=== PATIENT | male | born 1955 | race Two or more races ===

== ENCOUNTER 2018-07-29 08:21 | Day surgery (SDC) | payer BC ==
[2018-07-28 18:25] VITALS: BMI 31.3
[2018-07-29] MEDS ORDERED: CEFTRIAXONE 1 GM in DEXTROSE 5%-WATER - 50 ML IVPB ONE (10:45)
[2018-07-29] MEDS ORDERED: MIDAZOLAM HCL 2 MG/2 ML SINGLE DOSE VIAL ONE (11:04)
[2018-07-29] MEDS ORDERED: CEFTRIAXONE 1 GM/50 ML PREMIX IVPB ONE (11:40)
[2018-07-29] MEDS ORDERED: ONDANSETRON 4 MG/2 ML VIAL IVPUSH PRN (12:06)
[2018-07-29] MEDS ORDERED: oxyCODONE HCL 5 MG TABLET PO PRN ×3 (12:06→12:27)
[2018-07-29] MEDS ORDERED: LACTATED RINGERS SOLUTION 1,000 ML IV SCH (12:15)
[2018-07-29] MEDS ORDERED: ELECTROLYTE-148 SOLN 1,000 ML IV SCH (12:30)
--- NOTE | 2018-07-29 12:30 | OP ---
Operative Note - Note: Operative Date: 07/29/18 Pre-Operative Diagnosis: BPH,incompletye emptying Operation: TURP/TURVP Findings: BPH Post-Operative Diagnosis: Same as Pre-op Anesthesia: Spinal Specimens Removed: prostate chips Estimated Blood Loss (mls): 10 Drains & Tubes with Location: 24fr [address] [facility] Operative Report Dictated: Yes
--- NOTE | 2018-07-29 13:58 | OP ---
DATE OF OPERATION: 07/29/2018 PREOPERATIVE DIAGNOSIS: Benign prostatic hypertrophy with incomplete bladder emptying. POSTOPERATIVE DIAGNOSIS: Benign prostatic hypertrophy with incomplete bladder emptying. PROCEDURE: Cystoscopy, bipolar transurethral resection and vaporization of the prostate. SURGEON: Dharmesh Ramos MD INDICATIONS: Patient is a 62-year-old male with recurrent UTI from incomplete bladder emptying. After reviewing treatment options, patient elected to undergo bipolar TURP and TUVP. Risks, benefits, and alternatives were discussed including bleeding, infection, impotence, incontinence, stricture formation, and potential need for additional procedures. DESCRIPTION OF PROCEDURE: After informed consent was obtained, the patient was taken to the OR and placed supine on the OR table. With cardiac monitoring administered and spinal anesthetic then given, he was prepped and draped in dorsal lithotomy position. The meatus was dilated with meatal sounds to 26-Lao. The meatus was dilated because of mild meatal narrowing. At this point then, the 26-sheath resectoscope was inserted into the urethra without difficulty. Anterior urethra was normal. Prostatic urethra was 4 cm and visually occlusive with an enlarged median bar. No tumors or stones noted in the bladder. At this point, then, using the loop, the prostate tissue was resected at the median lobe and the lateral tissue circumferentially. All bleeding sites were then cauterized. Then, I switched over to a half-castillo electrode for vaporization and coagulation. There was no resection or vaporization within 1 cm of the verumontanum to minimize the chance of incontinence. All prostate chips were removed with the Ellik evacuator. With the resectoscope situated just past the verumontanum, looking into the bladder, a wide open channel was noted. There was no injury to the bladder or ureteral orifices. Resectoscope was then removed, and a 24-Lao Sharp was then placed to straight drainage. [place]-tinged urine was retrieved. Patient was then awoken from anesthesia and transferred to the recovery room in stable condition. There were no complications. Estimated blood loss was minimal. DHARMESH RAMOS M.D. [id number]
[2018-07-29 17:51] VITALS: BP 130/84; PULSE 74; TEMP 97.9
--- NOTE | 2018-07-30 16:33 | PATH ---
Surgical Pathology Report Patient Name: ZAHRA PLUNKETT [facility]. Rec. #: [id number] /Age/Gender: 1955 (Age: 62) / M Account: [id number] Location: [facility] Taken: 07/29/2018 Received: 07/29/2018 Reported: 07/30/2018 Physicians: Nate Hayward M.D. Specimen(s) Received PROSTATE TISSUE Clinical History BPH Final Diagnosis PROSTATE TISSUE, TRANSURETHRAL RESECTION OF PROSTATE: BENIGN PROSTATIC TISSUE WITH FOCAL ACUTE AND CHRONIC INFLAMMATION, ACINAR ATROPHY, CYSTIC CHANGES, GLANDULAR AND STROMAL HYPERPLASIA. Electronically Signed Carmela Hansen M.D. Gross Description Received in formalin labeled "prostate tissue," is a 2 g, 3.8 x 3.0 x 0.5 cm aggregate of sheriff, irregular, firm to rubbery portions of tissue, consistent with prostate tissue. The specimen is submitted in toto in 3 cassettes. /07/29/201807/29/2018
== END 2018-07-29 17:59 | disposition home or self-care (01) ==
LOC: JASU-SURG 08:21
PROVIDERS: ATTEND Urology
PROC: 0TJB8ZZ Inspection of Bladder, Via Natural or Artificial Opening Endoscopic (ICD-10-PCS; 2018-07-29)
PROC: 0VT08ZZ Resection of Prostate, Via Natural or Artificial Opening Endoscopic (ICD-10-PCS; principal; 2018-07-29 11:00)
DX: N40.1 Benign prostatic hyperplasia with lower urinary tract symptoms (principal); R33.8 Other retention of urine
CPT/HCPCS: 88305-TC; 94760

== ENCOUNTER 2018-08-07 01:36 | Emergency (ER) | payer BC ==
[2018-08-07 02:26] VITALS: BMI 31.8
[2018-08-07 02:39] VITALS: PULSE 82
--- NOTE | 2018-08-07 02:41 | PDOC ---
History of Present Illness - General History Source: Patient, Old Records Exam Limitations: No Limitations - History of Present Illness Travel History: No Initial Comments: 08/07/18 02:36 HISTORY OF PRESENT ILLNESS: This 62-year-old male past medical history of BPH status post her 07/29/18 presents emergency department for evaluation of gross hematuria over the past 2 days. Patient reports it is fully removed approximately 5 days ago and presented to ER today with complaints of urinary frequency and gross hematuria. Patient also with mild dysuria. Patient denies any abdominal pain, flank pain, nausea or vomiting. No recent travel or sick contacts. PAST MEDICAL HISTORY: see HPI SURGICAL HISTORY: see HPI ALLERGIES: No known drug allergies REVIEW OF SYSTEMS General/Constitutional: Denies fever or chills. Denies weakness, weight change. HEENT: Denies change in vision. Denies ear pain or discharge. Denies sore throat. Cardiovascular: Denies chest pain or shortness of breath. Respiratory: Denies cough, wheezing, or hemoptysis. Gastrointestinal: Denies nausea, vomiting, diarrhea or constipation. Denies rectal bleeding. Genitourinary: see HPI Musculoskeletal: Denies joint or muscle swelling or pain. Denies neck or back pain. Skin and breasts: Denies rash or easy bruising. Neurologic: Denies headache, vertigo, loss of consciousness, or loss of sensation. Psychiatric: Denies depression or anxiety. Endocrine: Denies increased thirst. Denies abnormal weight change. Hematologic/Lymphatic: Denies anemia, easy bleeding, or history of blood clots. Allergic/Immunologic: Denies hives or skin allergy. Denies latex allergy. PHYSICAL EXAM General Appearance: Well-appearing, appropriately dressed. No apparent distress , no intoxication. HEENT: EOMI, PERRLA, normal ENT inspection, normal voice, TMs normal, pharynx normal. No conjunctival pallor. No photophobia, scleral icterus. Neck: Supple. Trachea midline. No tenderness, rigidity, carotid bruit, stridor , lymphadenopathy, or thyromegaly. Respiratory/Chest: Lungs CTAB. No shortness of breath, chest tenderness, respiratory distress, accessory muscle use. No crackles, rales, rhonchi, stridor , wheezing, dullness Cardiovascular: RRR. S1, S2. No JVD, murmur, bradycardia, tachycardia. Vascular Pulses: Dorsalis-Pedis (R): 2+, Dorsalis-Pedis (L): 2+ Gastrointestinal/Abdominal: Normal bowel sounds. Abdomen soft, non-distended. No tenderness or rebound tenderness. No organomegaly, pulsatile mass, guarding, hernia, hepatomegaly, splenomegaly. Lymphatic: No adenopathy, tenderness. Musculoskeletal/Extremities: Normal inspection. FROM of all extremities, normal capillary refill. Pelvis Stable. No CVA tenderness. No tenderness to extremities, pedal edema, swelling, erythema or deformity. Integumentary: Appropriate color, dry, warm. No cyanosis, erythema, jaundice or rash Neurologic: pediatric cardiologist II-XII intact. Fully oriented, alert. Appropriate mood/affect. Motor strength 5/5. No appreciable EOM palsy, facial droop or sensory deficit. <Nate Head - Last Filed: 08/07/18 06:36> <Anastacia Dang - Last Filed: 08/07/18 08:41> - General Chief Complaint: Hematuria Stated Complaint: BLEEDING, S/P SURGERY Time Seen by Provider: 08/07/18 02:12 Past History - Past Medical History Anemia: No Asthma: No Cancer: No Cardiac Disorders: No CVA: No COPD: No CHF: No Dementia: No Diabetes: No GI Disorders: No Disorders: No HTN: No Hypercholesterolemia: Yes Liver Disease: No Seizures: No Thyroid Disease: No - Surgical History Abdominal Surgery: Yes (hernia 30 yrs ago) Appendectomy: No Cardiac Surgery: No Cholecystectomy: No Lung Surgery: No Neurologic Surgery: No Orthopedic Surgery: No - Suicide/Smoking/Psychosocial Hx Smoking History: Never smoked Have you smoked in the past 12 months: No Information on smoking cessation initiated: No Hx Alcohol Use: No Drug/Substance Use Hx: No Substance Use Type: None Hx Substance Use Treatment: No <Nate Head - Last Filed: 08/07/18 06:36> <Anastacia Dang - Last Filed: 08/07/18 08:41> - Past Medical History Allergies/Adverse Reactions: Allergies Allergy/AdvReac Type Severity Reaction Status Date / Time No Known Allergies Allergy Verified 07/29/18 09:30 Home Medications: Ambulatory Orders Doxycycline Calcium 8 mg PO HS 07/28/18 *Physical Exam - Vital Signs Last Vital Signs Temp Pulse Resp BP Pulse Ox 100.0 F H 112 H 18 165/104 H 99 03/09/19 01:45 08/07/18 01:45 08/07/18 01:45 08/07/18 01:45 08/07/18 01:45 <Nate Head - Last Filed: 08/07/18 06:36> - Vital Signs Last Vital Signs Temp Pulse Resp BP Pulse Ox 98.9 F 82 18 152/78 98 08/07/18 01:45 08/07/18 01:45 08/07/18 01:45 08/07/18 01:45 08/07/18 01:45 <Anastacia Dang - Last Filed: 08/07/18 08:41> Moderate Sedation - Procedure Monitoring Vital Signs: Procedure Monitoring Vital Signs Temperature 100.0 F H 08/07/18 01:45 Pulse Rate 112 H 08/07/18 01:45 Respiratory Rate 18 08/07/18 01:45 Blood Pressure 165/104 H 08/07/18 01:45 O2 Sat by Pulse Oximetry (%) 99 08/07/18 01:45 <Nate Head - Last Filed: 08/07/18 06:36> - Procedure Monitoring Vital Signs: Procedure Monitoring Vital Signs Temperature 98.9 F 08/07/18 01:45 Pulse Rate 82 08/07/18 01:45 Respiratory Rate 18 08/07/18 01:45 Blood Pressure 152/78 08/07/18 01:45 O2 Sat by Pulse Oximetry (%) 98 08/07/18 01:45 <Anastacia Dang - Last Filed: 08/07/18 08:41> ED Treatment Course - LABORATORY CBC & Chemistry Diagram: 08/07/18 04:15 08/07/18 04:15 <Nate Head - Last Filed: 08/07/18 06:36> - LABORATORY CBC & Chemistry Diagram: 08/07/18 04:15 08/07/18 04:15 - ADDITIONAL ORDERS Additional order review: Laboratory Results 08/07/18 08/07/18 04:15 03:00 Sodium 136 Potassium 4.7 Chloride 104 Carbon Dioxide 27 Anion Gap 6 L BUN 20 H Creatinine 1.0 Creat Clearance w eGFR > 60 Random Glucose 111 H Calcium 9.0 Urine Color Red Urine Appearance Bloody Urine pH [employer] Ur Specific [place] [employer] Urine Protein [employer] Urine Glucose (UA) [employer] Urine Ketones [employer] Urine Blood [employer] Urine Nitrite [employer] Urine Bilirubin [employer] Urine Urobilinogen [employer] Ur Leukocyte Esterase [employer] Urine WBC (Auto) No Result Required. Urine RBC (Auto) 90-100 08/07/18 04:15 RBC 5.01 MCV 89.8 MCHC 35.0 RDW 13.6 MPV 7.3 L Neutrophils % 61.9 Lymphocytes % 27.0 Monocytes % 8.6 Eosinophils % 2.0 Basophils % 0.5 <Anastacia Dang - Last Filed: 08/07/18 08:41> Progress Note - Progress Note Progress Note: Spoke with Dr. Morejon. States that episodes of hematuria and difficulty voiding can happen intermittently after a TURP. Since patient is voiding, no cath needed at this time. States he should make a follow up with the office for a post op follow up. Recommends returning to ED if patient should experience an acute retention. States he does not need antibiotics at this time. Will cancel the levoquin prescription. He state he will follow up with the culture. Will dc home at this time. <Anastacia Dang - Last Filed: 08/07/18 08:41> Medical Decision Making - Medical Decision Making 08/07/18 04:22 A/P: 62-year-old male with hematuria status post TURP UA, urine culture Labs Reassess 08/07/18 06:36 Patient with large volume void. I will hold off on catheterization at this point. I'll discharge the patient home to follow-up with Dr. Bravo within the next 3 days. Although patient just finished a course of antibiotics I will prescribe Levaquin for 3 days until patient could follow with . Strict return precautions have been provided to the patient. I discussed the physical exam findings, ancillary test results and final diagnoses with the patient. I answered all of the patient's questions. The patient was satisfied with the care received and felt comfortable with the discharge plan and treatment plan. The patient will call their primary care physician within 24 hours to arrange follow-up and will return to the Emergency Department with any new, persistent or worsening symptoms. <Nate Head - Last Filed: 08/07/18 06:36> *DC/Admit/Observation/Transfer - Discharge Dispostion Decision to Admit order: No <Nate Head - Last Filed: 08/07/18 06:36> <Anastacia Dang - Last Filed: 08/07/18 08:41> Diagnosis at time of Disposition: Hematuria Qualifiers: Hematuria type: gross Qualified Code(s): R31.0 - Gross hematuria - Discharge Dispostion Disposition: HOME Condition at time of disposition: Fair - Referrals Referrals: Abhinav Zapata MD [Primary Care Provider] - Nate Hayward MD [Staff Physician] - - Patient Instructions Additional Instructions: Take Levaquin 750 mg every day and told her all completed. Call Dr. Hayward for reevaluation. Return to emergency department for inability to urinate, burning when he urinated, lightheadedness, dizziness or for any other concerns. Thank you very much for choosing us to provide your emergent health care needs. - Post Discharge Activity Forms/Work/School Notes: Back to Work
[2018-08-07 04:49] LABS: BASO % 0.5 % (0-2.0); HEMOGLOBIN 15.7 GM/dL (11.7-16.9); MCH 31.4 pg (25.7-33.7); MEAN CELL VOLUME 89.8 fl (80-96); MEAN PLT VOLUME 7.3 fl (7.5-11.1); MONO % 8.6 % (3.8-10.2); NEUT % 61.9 % (42.8-82.8); PLATELET COUNT 246 K/MM3 (134-434); RBC 5.01 M/mm3 (4.00-5.60); RDW 13.6 % (11.9-15.9); WHITE BLOOD COUNT 9.2 K/mm3 (4.0-10.0)
[2018-08-07 05:09] LABS: ANION GAP 6 MMOL/L (8-16); BLOOD UREA NITROGEN 20 mg/dL (7-18); CHLORIDE 104 mmol/L (98-107); CO2 27 mmol/L (21-32); GLUCOSE,RANDOM 111 mg/dL (74-106); POTASSIUM 4.7 mmol/L (3.5-5.1); SODIUM 136 mmol/L (136-145)
[2018-08-07 07:44] LABS: URINE APPEARANCE BLOODY; URINE COLOR RED
[2018-08-07 08:45] VITALS: BP 123/82; TEMP 97.9
== END 2018-08-07 09:29 | disposition home or self-care (01) ==
LOC: JER 01:36
DX: R31.0 Gross hematuria (principal); Z98.890 Other specified postprocedural states; E78.00 Pure hypercholesterolemia, unspecified
CPT/HCPCS: 36415; 80048; 81003; 81015; 85025; 87086; 87186; 99281-25

== ENCOUNTER 2022-11-26 04:10 | Day surgery (SDC) | payer BC ==
[2022-11-24 13:37] VITALS: BMI 33.7
[2022-11-26] MEDS ORDERED: LIDOCAINE HCL/PF 2% SDV 5ML VIAL ONE (07:09)
[2022-11-26] MEDS ORDERED: ceFAZolin SODIUM 1 GM VIAL ONE (07:09)
[2022-11-26] MEDS ORDERED: PROPOFOL 20 ML ONE (07:09)
[2022-11-26] MEDS ORDERED: SODIUM CHLORIDE 0.9% P/F 10 ML VIAL IJ ONE (07:10)
[2022-11-26] MEDS ORDERED: MIDAZOLAM HCL 2 MG/2 ML SINGLE DOSE VIAL ONE (07:10)
[2022-11-26] MEDS ORDERED: ONDANSETRON 4 MG/2 ML VIAL ONE (07:11)
[2022-11-26] MEDS ORDERED: KETOROLAC TROMETHAMINE 30 MG/1 ML VIAL ONE (07:11)
[2022-11-26] MEDS ORDERED: DEXAMETHASONE SOD PHOSPHATE 4 MG/1 ML VIAL ONE (07:11)
[2022-11-26] MEDS ORDERED: VANCOMYCIN 1,000 MG VIAL (RESTRICTED TO ID ONLY) ONE (07:30)
[2022-11-26] MEDS ORDERED: VANCOMYCIN 1,000 MG VIAL (RESTRICTED TO ID ONLY) IVPB ONE (07:33)
[2022-11-26] MEDS ORDERED: DEXTROSE 5%-0.45% SALINE 1,000 ML IV SCH (08:15)
[2022-11-26] MEDS ORDERED: oxyCODONE HCL 5 MG TABLET PO PRN ×2 (08:22)
[2022-11-26] MEDS ORDERED: PROMETHAZINE HCL 25 MG/1 ML VIAL IVPB PRN (08:22)
[2022-11-26] MEDS ORDERED: ONDANSETRON 4 MG/2 ML VIAL IVPUSH PRN (08:22)
[2022-11-26] MEDS ORDERED: LACTATED RINGERS SOLUTION 1,000 ML IV SCH (08:30)
[2022-11-26 09:32] VITALS: RESP 16
[2022-11-26 10:38] VITALS: BP 128/77; PULSE 66; TEMP 97.5
== END 2022-11-26 10:30 | disposition home or self-care (01) ==
LOC: JASU-SURG 04:10
PROVIDERS: ATTEND Urology
PROC: 0VT08ZZ Resection of Prostate, Via Natural or Artificial Opening Endoscopic (ICD-10-PCS; principal; 2022-11-26 07:30)
DX: N40.0 Benign prostatic hyperplasia without lower urinary tract symptoms (principal)
CPT/HCPCS: 88305-TC; 94760

== ENCOUNTER 2023-01-14 18:35 | Inpatient (IN) | payer BC, OTHER ==
[2023-01-14 20:24] LABS: EOS % 4.7 % (0-4.5); HEMATOCRIT 42.6 % (35.4-49); HEMOGLOBIN 14.5 GM/dL (11.7-16.9); LYMPH % 28.2 % (8-40); MEAN CELL VOLUME 88.3 fl (80-96); MEAN PLT VOLUME 7.5 fl (7.5-11.1); MONO % 10.2 % (3.8-10.2); NEUT % 55.9 % (42.8-82.8); PLATELET COUNT 248 10^3/uL (134-434); RBC 4.83 M/mm3 (4.00-5.60); RDW 13.7 % (11.9-15.9); WHITE BLOOD COUNT 6.7 K/mm3 (4.0-10.0)
[2023-01-14 20:28] LABS: INR 1.14 (0.83-1.09); PROTHROMBIN TIME (PATIENT) 13.2 SEC (9.7-13.0)
[2023-01-14 20:42] LABS: EPI CELLS 4 /uL (0-25.1); HYALINE CASTS 0 /uL (0-3.1); PH,URINE 5.5 (5.0-8.0); URINE APPEARANCE CLOUDY; URINE BACTERIA >9,000 /uL (0-1359); URINE BILIRUBIN NEGATIVE (NEGATIVE); URINE COLOR YELLOW; URINE GLUCOSE (UA) NEGATIVE (NEGATIVE); URINE KETONE NEGATIVE (NEGATIVE); URINE LEUK ESTERASE 3+ (NEGATIVE); URINE NITRITE POSITIVE (NEGATIVE); URINE PROTEIN TRACE (NEGATIVE); URINE RBC 27 /uL (0-23.9); URINE UROBILINOGEN 0.2 mg/dL (0.2-1.0); URINE WBC 1999 /uL (0-25.8)
[2023-01-14] MEDS ORDERED: VANCOMYCIN 1,000 MG in DEXTROSE 5%-WATER - 250 ML IVPB ONE (21:09)
[2023-01-14] MEDS ORDERED: PIPERACILLIN/TAZOBACTAM 4.5 GM VIAL IVPB ONE (21:09)
[2023-01-14 21:29] LABS: POTASSIUM 4.1 mmol/L (3.5-5.1)
[2023-01-14 21:33] LABS: ALBUMIN 3.6 g/dl (3.4-5.0); BLOOD UREA NITROGEN 14.7 mg/dL (7-18); CALCIUM 8.8 mg/dL (8.5-10.1)
[2023-01-14 21:38] LABS: BILIRUBIN,TOTAL 0.9 mg/dL (0.2-1); TOT PROT 7.4 g/dl (6.4-8.2)
[2023-01-14] MEDS ORDERED: VANCOMYCIN/WATER FOR INJ (PEG) 1,000 MG/200 ML BAG IVPB ONE (22:22)
[2023-01-14] MEDS ORDERED: PIPERACILLIN/TAZOB 4.5 GM 4.5 GM/100 ML BAG IVPB ONE (22:22)
[2023-01-15] MEDS: SODIUM CHLORIDE 1,000 ML IV SCH ×2 (00:37→08:23)
[2023-01-15 00:41] VITALS: RESP 18
[2023-01-15 03:29] VITALS: BMI 33.4
[2023-01-15] MEDS ORDERED: PIPERACILLIN/TAZOB 3.375 GM 3.375 GM in DEXTROSE 5%-WATER - 50 ML IVPB SCH (08:00)
[2023-01-15 08:44] LABS: HEMATOCRIT 42.4 % (35.4-49); MCH 29.8 pg (25.7-33.7); MEAN CELL VOLUME 90.5 fl (80-96); MEAN PLT VOLUME 8.8 fl (7.5-11.1); PLATELET COUNT 217 10^3/uL (134-434); RBC 4.69 M/mm3 (4.00-5.60); RDW 13.6 % (11.9-15.9); WHITE BLOOD COUNT 6.6 K/mm3 (4.0-10.0)
[2023-01-15 09:01] LABS: POTASSIUM 4.1 mmol/L (3.5-5.1)
[2023-01-15 09:04] LABS: CALCIUM 8.4 mg/dL (8.5-10.1)
[2023-01-15 09:05] LABS: ALBUMIN 3.4 g/dl (3.4-5.0); BLOOD UREA NITROGEN 13.4 mg/dL (7-18); MAGNESIUM 2.3 mg/dL (1.8-2.4)
[2023-01-15] MEDS: ENOXAPARIN NA (PORCINE) 40 MG/0.4 ML DISP.SYRIN SQ SCH (09:07)
[2023-01-15 09:08] LABS: PHOSPHOROUS 3.6 mg/dL (2.5-4.9)
[2023-01-15 09:09] LABS: TOT PROT 6.8 g/dl (6.4-8.2)
[2023-01-15 09:10] LABS: BILIRUBIN,TOTAL 1.1 mg/dL (0.2-1)
[2023-01-15] MEDS ORDERED: MEROPENEM 1 GM in DEXTROSE 5%-WATER 100 ML IVPB SCH ×2 (11:30→13:00)
[2023-01-15] MEDS: PIPERACILLIN/TAZOB 3.375 GM 3.375 GM in DEXTROSE 5%-WATER - 50 ML IVPB SCH (12:35)
[2023-01-15] MEDS: MEROPENEM 1 GM in DEXTROSE 5%-WATER 100 ML IVPB SCH (17:48)
[2023-01-15] MEDS: DOXAZOSIN MESYLATE 4 MG TABLET PO SCH (21:24)
[2023-01-16] MEDS: MEROPENEM 1 GM in DEXTROSE 5%-WATER 100 ML IVPB SCH ×3 (02:01→17:27)
[2023-01-16] MEDS: ENOXAPARIN NA (PORCINE) 40 MG/0.4 ML DISP.SYRIN SQ SCH (10:12)
[2023-01-16 10:49] LABS: BASO % 0.6 % (0-2.0); EOS % 3.4 % (0-4.5); HEMOGLOBIN 14.1 GM/dL (11.7-16.9); LYMPH % 32.4 % (8-40); MCH 30.3 pg (25.7-33.7); MCHC 34.3 g/dl (32.0-35.9); MEAN CELL VOLUME 88.2 fl (80-96); MEAN PLT VOLUME 7.3 fl (7.5-11.1); MONO % 8.8 % (3.8-10.2); NEUT % 54.8 % (42.8-82.8); PLATELET COUNT 258 10^3/uL (134-434); RBC 4.65 M/mm3 (4.00-5.60); RDW 13.5 % (11.9-15.9); WHITE BLOOD COUNT 5.6 K/mm3 (4.0-10.0)
[2023-01-16 11:25] LABS: POTASSIUM 4.1 mmol/L (3.5-5.1)
[2023-01-16 11:33] LABS: CALCIUM 8.7 mg/dL (8.5-10.1); MAGNESIUM 2.3 mg/dL (1.8-2.4)
[2023-01-16 11:34] LABS: CREATININE 0.9 mg/dL (0.55-1.3)
[2023-01-16 11:35] LABS: TOT PROT 6.9 g/dl (6.4-8.2)
[2023-01-16 11:40] LABS: BILIRUBIN,TOTAL 0.6 mg/dL (0.2-1)
[2023-01-16 11:41] LABS: ALBUMIN 3.4 g/dl (3.4-5.0); BLOOD UREA NITROGEN 15.3 mg/dL (7-18)
[2023-01-16 12:30] LABS: PHOSPHOROUS 2.7 mg/dL (2.5-4.9)
[2023-01-16] MEDS: SODIUM CHLORIDE 1,000 ML IV SCH (21:30)
[2023-01-16] MEDS: DOXAZOSIN MESYLATE 4 MG TABLET PO SCH (21:34)
[2023-01-17] MEDS: MEROPENEM 1 GM in DEXTROSE 5%-WATER 100 ML IVPB SCH ×2 (01:18→09:15)
[2023-01-17] MEDS: ENOXAPARIN NA (PORCINE) 40 MG/0.4 ML DISP.SYRIN SQ SCH (09:16)
[2023-01-17 10:30] LABS: BASO % 0.9 % (0-2.0); EOS % 3.1 % (0-4.5); HEMATOCRIT 41.2 % (35.4-49); HEMOGLOBIN 14.3 GM/dL (11.7-16.9); LYMPH % 31.2 % (8-40); MCH 30.5 pg (25.7-33.7); MCHC 34.8 g/dl (32.0-35.9); MEAN CELL VOLUME 87.7 fl (80-96); MEAN PLT VOLUME 7.5 fl (7.5-11.1); MONO % 7.3 % (3.8-10.2); NEUT % 57.5 % (42.8-82.8); PLATELET COUNT 244 10^3/uL (134-434); RDW 13.8 % (11.9-15.9); WHITE BLOOD COUNT 5.8 K/mm3 (4.0-10.0)
[2023-01-17 10:56] LABS: CALCIUM 8.9 mg/dL (8.5-10.1)
[2023-01-17 10:57] LABS: ALBUMIN 3.4 g/dl (3.4-5.0); BLOOD UREA NITROGEN 15.3 mg/dL (7-18); MAGNESIUM 2.4 mg/dL (1.8-2.4)
[2023-01-17 10:59] LABS: CREATININE 1.1 mg/dL (0.55-1.3); PHOSPHOROUS 2.4 mg/dL (2.5-4.9)
[2023-01-17 11:00] LABS: BILIRUBIN,TOTAL 0.9 mg/dL (0.2-1); TOT PROT 6.8 g/dl (6.4-8.2)
[2023-01-17] MEDS ORDERED: NAPH,MB-DB/K PH,MBDB POWDER PACKET PO ONE (11:45)
[2023-01-17] MEDS: CEFTRIAXONE 2 GM in DEXTROSE 5%-WATER 100 ML IVPB SCH (14:06)
[2023-01-17] MEDS ORDERED: CEFTRIAXONE 1 GM in DEXTROSE 5%-WATER - 50 ML IVPB SCH (15:00)
[2023-01-17] MEDS: DOXAZOSIN MESYLATE 4 MG TABLET PO SCH (21:26)
[2023-01-18] MEDS: ENOXAPARIN NA (PORCINE) 40 MG/0.4 ML DISP.SYRIN SQ SCH (09:56)
[2023-01-18] MEDS: CEFTRIAXONE 2 GM in DEXTROSE 5%-WATER 100 ML IVPB SCH (09:56)
[2023-01-18] MEDS ORDERED: NAPH,MB-DB/K PH,MBDB POWDER PACKET PO ONE (10:40)
[2023-01-18] MEDS: DOXAZOSIN MESYLATE 4 MG TABLET PO SCH (21:30)
[2023-01-19] MEDS: CEFTRIAXONE 2 GM in DEXTROSE 5%-WATER 100 ML IVPB SCH (09:22)
[2023-01-19 11:05] LABS: BASO % 1.2 % (0-2.0); EOS % 2.2 % (0-4.5); HEMATOCRIT 42.4 % (35.4-49); HEMOGLOBIN 14.5 GM/dL (11.7-16.9); LYMPH % 39.7 % (8-40); MCHC 34.2 g/dl (32.0-35.9); MEAN CELL VOLUME 87.7 fl (80-96); MEAN PLT VOLUME 7.4 fl (7.5-11.1); MONO % 4.8 % (3.8-10.2); NEUT % 52.1 % (42.8-82.8); PLATELET COUNT 269 10^3/uL (134-434); RBC 4.83 M/mm3 (4.00-5.60); RDW 13.8 % (11.9-15.9); WHITE BLOOD COUNT 6.6 K/mm3 (4.0-10.0)
[2023-01-19 11:24] LABS: POTASSIUM 4.2 mmol/L (3.5-5.1)
[2023-01-19 11:35] LABS: ALBUMIN 3.3 g/dl (3.4-5.0); BLOOD UREA NITROGEN 14.5 mg/dL (7-18); CALCIUM 8.4 mg/dL (8.5-10.1); MAGNESIUM 2.3 mg/dL (1.8-2.4)
[2023-01-19 11:38] LABS: PHOSPHOROUS 2.8 mg/dL (2.5-4.9)
[2023-01-19 11:39] LABS: CREATININE 0.9 mg/dL (0.55-1.3)
[2023-01-19 11:40] LABS: BILIRUBIN,TOTAL 0.5 mg/dL (0.2-1); TOT PROT 6.8 g/dl (6.4-8.2)
[2023-01-19 15:44] VITALS: BP 130/78; PULSE 81; TEMP 97.8
== END 2023-01-19 16:21 | disposition home or self-care (01) | DRG 863 ==
LOC: JER 18:35 → JERBED 19:42 → J6S 01-15 01:14
PROVIDERS: ADMIT Internal Medicine; ATTEND Internal Medicine
DX: T81.40XA Infection following a procedure, unspecified, initial encounter (principal); N39.0 Urinary tract infection, site not specified; K92.1 Melena; B96.20 Unspecified Escherichia coli [E. coli] as the cause of diseases classified elsewhere; E78.5 Hyperlipidemia, unspecified; N40.0 Benign prostatic hyperplasia without lower urinary tract symptoms; I10 Essential (primary) hypertension; R94.5 Abnormal results of liver function studies; R30.0 Dysuria; K76.0 Fatty (change of) liver, not elsewhere classified; Y83.8 Other surgical procedures as the cause of abnormal reaction of the patient, or of later complication, without mention of misadventure at the time of the procedure
CPT/HCPCS: 36415; 74178-TC; 80053; 80061; 81003; 82272; 83036; 83735; 84100; 84153; 85025; 85027; 85610; 85730; 86850; 86900; 86901; 87040; 87086; 87186; 93005; 93010; 99285-25; Q9967